=== PATIENT | male | born 1945 | race Caucasian/White ===

== ENCOUNTER 2016-11-12 08:00 | Outpatient (CLI) | payer MEDICARE, OTHER | END 2016-11-12 08:01 | disposition home or self-care (01) | DX: I10 Essential (primary) hypertension (principal); E78.5 Hyperlipidemia, unspecified; C61 Malignant neoplasm of prostate ==

== ENCOUNTER 2019-03-05 08:00 | Outpatient (CLI) | payer MEDICARE, OTHER | END 2019-03-05 23:59 | disposition home or self-care (01) | LOC: LAB.R 08:00 | PROVIDERS: ATTEND Podiatrist | DX: L03.031 Cellulitis of right toe (principal) | CPT/HCPCS: 87070; 87181; 87205 ==

== ENCOUNTER 2020-10-22 21:46 | Emergency (ER) | payer MEDICARE, OTHER ==
[2020-10-22 22:10] LABS: BASOPHILS % (AUTO) 0.4 %; EOSINOPHILS # (AUTO) 0.2 10^3/uL (0.0-0.7); EOSINOPHILS % (AUTO) 3.6 %; HCT - HEMATOCRIT 46.9 % (42.0-52.0); HGB - HEMOGLOBIN 15.8 g/dL (14.0-18.0); LYMPHOCYTES # (AUTO) 1.5 10^3/uL (1.5-3.5); LYMPHOCYTES % (AUTO) 27.3 %; MEAN CORPUSCULAR HEMOGLOBIN 31.4 pg (27.0-31.0); MEAN CORPUSCULAR HGB CONC 33.7 g/dL (32.0-36.0); MEAN CORPUSCULAR VOLUME 93.2 fL (80.0-94.0); MEAN PLATELET VOLUME 9.4 fL (7.4-11.4); MONOCYTES # (AUTO) 0.6 10^3/uL (0.0-1.0); MONOCYTES % (AUTO) 11.1 %; NEUTROPHILS # (AUTO) 3.2 10^3/uL (1.5-6.6); NEUTROPHILS % (AUTO) 57.4 %; PLT - PLATELET COUNT 290 10^3/uL (130-450); RED BLOOD COUNT 5.03 10^6/uL (4.70-6.10); RED CELL DISTRIBUTION WIDTH 12.8 % (12.0-15.0); WHITE BLOOD COUNT 5.5 x10^3/uL (4.8-10.8)
[2020-10-22] MEDS ORDERED: SODIUM CHLORIDE 0.9% 1,000 ML IV STA (22:21)
[2020-10-22 22:24] LABS: ALBUMIN 4.2 g/dL (3.2-5.5); ALBUMIN/GLOBULIN RATIO 1.2 (1.0-2.2); BILIRUBIN,TOTAL 0.6 mg/dL (0.2-1.0); CALCIUM 9.1 mg/dL (8.5-10.3); CREATININE 0.8 mg/dL (0.6-1.2); POTASSIUM 3.8 mmol/L (3.5-5.0); TOTAL PROTEIN 7.6 g/dL (6.7-8.2)
--- NOTE | 2020-10-22 22:26 | ED Physician Documentation ---
PD HPI FOCAL NEURO - Stated complaint Stated Complaint: NUMBNESS R SIDE OF BODY, FATIGUE - Chief complaint Chief Complaint: Neuro - History obtained from History obtained from: Patient - History of Present Illness Timing - onset: How many days ago (2) Timing - duration: Days (2) Timing - details: Gradual onset, Still present Severity of deficit: Mild Weakness: Hand, Leg Numbness: Hand Associated symptoms: Other (fatigue). No: Headache, Nausea / vomiting, Seizure, Syncope, Fall, Head injury, Chest pain, Neck pain, Back pain, Fever Contributing factors: negative: Anticoagulated, Vascular dz, Atrial fibrillation, Prosthetic heart valve Baseline status: positive: A&OX3, ambulatory, indep Similar symptoms before: Has not had sx before Recently seen: Not recently seen - Additional information Additional information: 75-year-old male previously well described onset of symptoms of numbness to the right side of his body as well as some weakness. He has noted the writing on his checks to be small. He states they are slightly irregular as well. He states his symptoms are mild and he feels mostly fatigue. He denies any current illness. He did have his vaccination completed about 1 month ago. He is not currently having symptoms of numbness except to the hand which is mild. He is not having difficulty with strength or walking. Review of Systems Constitutional: reports: Fatigue. denies: Fever, Chills, Myalgias, Weight Loss, Sweats Eyes: denies: Decreased vision, Photophobia Ears: denies: Loss of hearing, Ear pain Nose: reports: Congestion (with allergy). denies: Rhinorrhea / runny nose Throat: denies: Dental pain / toothache, Oral lesions / sores, Sore throat Cardiac: denies: Chest pain / pressure, Palpitations Respiratory: reports: Dyspnea. denies: Cough GI: denies: Abdominal Pain, Nausea, Vomiting, Constipation, Diarrhea : denies: Dysuria, Frequency Skin: denies: Rash Musculoskeletal: denies: Neck pain, Back pain, Extremity pain, Extremity swelling Neurologic: reports: Focal weakness, Numbness. denies: Generalized weakness, Difficulty speaking, Near syncope, Syncope, Seizure, Confused, Altered mental status, Headache, Head injury, LOC Psychiatric: denies: Depressed, Hallucinations PD PAST MEDICAL HISTORY - Past Medical History Past Medical History: Yes Cardiovascular: Hypertension Respiratory: None Endocrine/Autoimmune: None GI: None : Benign prostate hypertrophy, Retention, Kidney stones, Other HEENT: None Psych: None Musculoskeletal: None Derm: None - Past Surgical History General: Colonoscopy Derm: Other - Present Medications Home Medications: Ambulatory Orders Medication Instructions Recorded Confirmed Losartan [Cozaar] 10 mg PO DAILY 06/25/13 10/22/20 allopurinoL [Zyloprim] 100 mg PO DAILY 10/22/20 10/22/20 - Allergies Allergies/Adverse Reactions: Allergies Allergy/AdvReac Type Severity Reaction Status Date / Time No Known Drug Allergies Allergy Verified 10/22/20 22:01 - Social History Does the pt smoke?: No Smoking Status: Never smoker Does the pt drink ETOH?: Yes ETOH Use: Liquor Does the pt have substance abuse?: No - Immunizations Immunizations are current?: Yes - POLST Patient has POLST: No PD ED PE NORMAL - Vitals Vital signs reviewed: Yes (hypesrtensive marked) - General General: Alert and oriented X 3, No acute distress, Well developed/nourished - HEENT HEENT: Atraumatic, PERRL, EOMI - Neck Neck: Supple, no meningeal sign, No bony TTP - Cardiac Cardiac: RRR, Other (1/6 holosystolic murmer at LSB) - Respiratory Respiratory: No respiratory distress, Clear bilaterally - Abdomen Abdomen: Normal bowel sounds, Soft, Non tender, Non distended, No organomegaly - Back Back: No CVA TTP, No spinal TTP - Derm Derm: Normal color, Warm and dry, No rash - Extremities Extremities: No deformity, No edema - Neuro Neuro: Alert and oriented X 3, operator assistant i cementing 2-12 intact, No motor deficit, No sensory deficit, Normal speech Eye Opening: Spontaneous Motor: Obeys Commands Verbal: Oriented GCS Score: 15 - Psych Psych: Normal mood, Normal affect NIHSS - Time Time: 22:02 - Level of Consciousness Level of consciousness: (0) Alert, Keenly responsive LOC Questions: (0) Answers both Q's correct LOC Commands: (0) Performs both correctly - Gaze Best Gaze: (0) Normal - Visual Visual: (0) No loss - Facial Palsy Facial Palsy: (0) Normal, symmetrical movement - Motor Arms (both separate) Motor Arm (right): (0) No drift Motor Arm (left): (0) No drift - Motor Legs (both separate) Motor Leg (right): (0) No drift Motor Leg (left): (0) No drift - Limb Ataxia Limb Ataxia: (0) Absent - Sensory Sensory: (0) Normal - Best Language Best Language: (0) No aphasia - Dysarthria Dysarthria: (0) Normal - Extinction and Inattention (formally neg Extinction and inattention: (0) No abnormality - Total Score/Results Total Score/Result: 0 Results - Vitals Vitals: Vital Signs - 24 hr 10/22/20 10/22/20 10/22/20 21:50 21:58 22:00 Temperature 36.7 C Heart Rate 72 71 73 Respiratory 18 19 Rate Blood Pressure 220/119 H 229/123 H 209/104 H O2 Saturation 98 97 10/22/20 10/22/20 10/23/20 22:57 23:00 00:00 Temperature Heart Rate 65 66 63 Respiratory 15 16 15 Rate Blood Pressure 199/102 H 205/107 H 199/102 H O2 Saturation 96 97 94 10/23/20 10/23/20 00:33 01:01 Temperature 35.7 C L Heart Rate 59 L Respiratory 14 Rate Blood Pressure 202/158 H 178/96 H O2 Saturation 94 Oxygen O2 Source Room air - EKG (time done) 2153 Rate: Rate (enter#) (74) Intervals: Prolonged KS Ischemia: Q waves (inferior), Other (minimal ST elevation V3) Compare to prior EKG: Old EKG unavailable Computer interpretation: Agree with computer - Labs Labs: Laboratory Tests 10/22/20 10/22/20 10/22/20 21:58 21:58 21:58 WBC 5.5 RBC 5.03 Hgb 15.8 Hct 46.9 MCV 93.2 MCH 31.4 H MCHC 33.7 RDW 12.8 Plt Count 290 MPV 9.4 Neut # (Auto) 3.2 Lymph # (Auto) 1.5 Stark # (Auto) 0.6 Eos # (Auto) 0.2 Baso # (Auto) 0.0 Absolute Nucleated RBC 0.00 Nucleated RBC % 0.0 Sodium 140 Potassium 3.8 Chloride 105 Carbon Dioxide 28 Anion Gap 7.0 BUN 23 H Creatinine 0.8 Estimated GFR (MDRD) 94 Glucose 99 Calcium 9.1 Total Bilirubin 0.6 AST 31 ALT 48 Alkaline Phosphatase 56 Troponin I High Sens 10.5 Total Protein 7.6 Albumin 4.2 Globulin 3.4 Albumin/Globulin Ratio 1.2 Lipase 38 - Rads (name of study) CT head w/o Radiology: Prelim report reviewed (Impression: No acute processes.), EMP read indepedently, See rad report PD MEDICAL DECISION MAKING - ED course Complexity details: reviewed old records, reviewed results, re-evaluated patient, considered differential, d/w patient ED course: 75-year-old male with history of hypertension and BPH has developed some symptoms of micrographia and some numbness to his right hand. He describes having a slight tremor for some time now to his right hand. He described his symptoms to his family and friends and they asked him to come in to be seen. He does not otherwise feel ill. On today's evaluation he is found to be dehydrated on interrogation the inferior vena cava and has a slight increase in his BUN but otherwise his electrolytes look entirely normal troponin is normal his blood pressure is markedly elevated. I queried the patient on his alcohol use and he did indicate that he usually is drinking a little more than 4 ounces of whiskey per day and that he has cut back on his alcohol consumption within the past week. I suspect his blood pressure spike is related to his alcohol withdrawal. I suspect his tremor and micrographia are early signs of Parkinson's disease and not a stroke. I have asked the patient to follow-up wit neurology. He does have a primary care doctor.He is administered 0.1 mg of clonidine for reduction in his blood pressure and this improves his blood pressure. Departure - Departure Disposition: 01 Home, Self Care Clinical Impression: Dehydration determined by examination, Micrographia Alcohol withdrawal Qualifiers: Complication of substance-induced condition: uncomplicated Qualified Code(s): F10.230 - Alcohol dependence with withdrawal, uncomplicated Hypertension Qualifiers: Hypertension type: essential hypertension Qualified Code(s): I10 - Essential (primary) hypertension Condition: Stable Instructions: Parkinson Disease Dc, ED Withdrawal Alcohol, ED Dehydration, ED Hypertension Conf Out Of Control Follow-Up: DUC ALEJANRDO MD [Primary Care Provider] - Comments: Today we found you to be quite hypertensive and this is likely due to your reduction in alcohol consumption. This will take several days to readjust and the recommendation is to continue the reduced alcohol and continue your blood pressure medications. Your small handwriting and tremor are concerning for Parkinsons and follow up with a neurologist is recommended. Talk to your primary care doctor about a referral.
--- OUTSIDE RECORDS SUMMARY | 2020-10-22 23:00 | EXTERNAL MEDICAL SUMMARY RPT | Continuity of Care Document ---
:1945 Demographics Phone Unavailable Preferred Language Unknown Marital Status Unknown Yarsanism Affiliation Unknown Race Unknown Ethnic Group Unknown Author Organization [facility] Address [address] [phone] Phone Social History date description facility [id number]
[2020-10-22] MEDS ORDERED: cloNIDine 0.1 MG TABLET PO STA (23:35)
[2020-10-23 01:03] VITALS: BP 178/96
--- NOTE | 2020-10-23 06:57 | CT Report ---
PROCEDURE: HEAD WO INDICATIONS: Right sided deficit hand and leg mild TECHNIQUE: Noncontrast 4.5 mm thick angled axial sections acquired from the foramen magnum to the vertex. For r adiation dose reduction, the following was used: automated exposure control, adjustment of mA and/or kV according to patient size. COMPARISON: None FINDINGS: Image quality: Excellent. CSF spaces: Basal cisterns are patent. No extra-axial fluid collections. The ventricles are symmet zurdo in size and shape. Brain: No intracranial bleeds or masses. There is cerebral volume loss for age, with resultant vent ricular and sulcal prominence. There are periventricular and deep white matter chronic small vessel ischemic changes. There is intracranial internal carotid artery atherosclerosis. Skull and face: Calvarium and visualized facial bones appear intact, without suspicious lesions. Sinuses: Mucous retention cyst versus polyp noted in the right maxillary sinus. The mastoids are deyvi r. IMPRESSION: No acute intracranial disease process. Reviewed by: Laura De La Rosa MD, PhD on 10/23/2020 6:56 AM PDT Approved by: Laura De La Rosa MD, PhD on 10/23/2020 6:56 AM PDT Station ID: [id number]
== END 2020-10-23 01:10 | disposition home or self-care (01) ==
LOC: ED 21:46
DX: E86.0 Dehydration (principal); F81.81 Disorder of written expression; F10.230 Alcohol dependence with withdrawal, uncomplicated
CPT/HCPCS: 36415; 70450; 80053; 83690; 84484; 85025; 93005; 96360; 99284; A9270

== ENCOUNTER 2021-01-03 07:39 | Outpatient (CLI) | payer MEDICARE, OTHER ==
[2021-01-03 15:42] LABS: CHOL/HDL RATIO 3.6 (<5.0); CHOLESTEROL 204 mg/dL; HDL CHOLESTEROL 56 mg/dL; LDL CHOLESTEROL,CALCULATED 125 mg/dL; LDL/HDL RATIO 2.2 (<3.6); TRIGLYCERIDES 114 mg/dL; VLDL CHOLESTEROL 23 mg/dL
[2021-01-03 16:50] LABS: ESTIMATED AVERAGE GLUCOSE 108 mg/dL (70-100); HEMOGLOBIN A1c% 5.4 % (4.27-6.07)
== END 2021-01-03 07:40 | disposition home or self-care (01) ==
LOC: LAB.S 07:39
PROVIDERS: ATTEND Psychiatry & Neurology Neurology
DX: I63.9 Cerebral infarction, unspecified (principal)
CPT/HCPCS: 36415; 80061; 83036; 83721